=== PATIENT | male | born 1945 | race Caucasian/White ===

== ENCOUNTER 2024-02-04 15:12 | Emergency (ER) | payer OTHER, SELFPAY ==
[2024-02-04] VITALS (29 sets, daily range): BP systolic 108–138; BP diastolic 65–100; PULSE 48–56; RESP 13–23; TEMP 36.5; O2SAT 94–100; BMI 31.3
--- NOTE | 2024-02-04 16:07 | XR_ITS ---
The [address] [address] Patient Name: ANISHA ANGEL MRN: [id number] date: 1945 Sex: M Assigned Patient Location: ER Current Patient Location: ER Accession/Order Number: [id number] Exam Date: 02/04/2024 16:20 Report Date: 02/04/2024 17:04 At the request of: HILARY HOWELL Procedure: XR chest 1V Exam: Radiographs: XR chest 1V Reason for exam: weak Comparison: Chest x-ray dated 03/16/2021 XR/XR chest 1V IMPRESSION: Small amount of linear atelectasis or scarring in the left lower lung. Minimal right midlung scarring. Remainder of the chest is unremarkable. Electronically authenticated by: SONYA RATLIFF Date: 02/04/2024 17:04
--- NOTE | 2024-02-04 16:07 | ECG_ITS ---
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
--- NOTE | 2024-02-04 16:07 | CT_ITS ---
The [address] [address] Patient Name: ANISHA ANGEL MRN: [id number] date: 1945 Sex: M Assigned Patient Location: ER Current Patient Location: ER Accession/Order Number: [id number] Exam Date: 02/04/2024 16:20 Report Date: 02/04/2024 16:58 At the request of: HILARY HOWELL Procedure: CT head/brain wo con CT HEAD WITHOUT CONTRAST. INDICATION: Dizziness. COMPARISON: None available for comparison TECHNIQUE: Axial CT head images from the skull base to the vertex without IV contrast were acquired. Coronal and sagittal reformats were also obtained. FINDINGS: EXTRA-AXIAL SPACE: Age-appropriate ventricles. No acute extra-axial collection. No extra-axial mass. No midline shift. CEREBRUM: No focal abnormality. No CT evidence of acute large territorial cortical infarct, hemorrhage or mass effect. CEREBELLUM: No focal abnormality. No CT evidence of acute infarct, hemorrhage or mass effect. BRAINSTEM: No focal abnormality. No CT evidence of acute infarct, hemorrhage or mass effect. EXTRACRANIAL STRUCTURES. There is opacification of the left maxillary sinus. Mastoid air cells are clear. Orbits are unremarkable. No discrete pituitary mass. Intact calvarium. CT/CT head/brain wo con IMPRESSION: No acute intracranial abnormality. Electronically authenticated by: CORDELL CALDERON Date: 02/04/2024 16:58
--- NOTE | 2024-02-04 16:08 | ED_ITS ---
HPI - General Adult General Chief complaint: Neuro Symptoms/Deficit Stated complaint: Dizziness Time Seen by Provider: 02/04/24 15:52 Source: patient and family Mode of arrival: Wheelchair Limitations: no limitations History of Present Illness HPI narrative: 78-year-old male presents for 4-day history of feeling dizzy and off balance. He has not fallen but he states when he walks he feels like he might do so. He has not noticed any localized weakness and does not have a headache or fever. No cough or shortness of breath or chest pain or abdominal pain. He has never had the symptoms before and it is continuous. Related Data Home Medications ?Medication ?Instructions ?Recorded ?Confirmed acetazolamide 250 mg tablet 250 mg PO Q12H 02/04/24 02/04/24 brimonidine 0.2 % eye drops 1 drp ophthalmic (eye) Q8H 02/04/24 02/04/24 dorzolamide 22.3 mg-timolol 6.8 1 drp ophthalmic (eye) Q12H 02/04/24 02/04/24 mg/mL eye drops duloxetine 30 mg capsule,delayed 30 mg PO DAILY 02/04/24 02/04/24 release finasteride 5 mg tablet 5 mg PO DAILY 02/04/24 02/04/24 latanoprost 0.005 % eye drops 1 drp ophthalmic (eye) .qhs 02/04/24 02/04/24 losartan 50 mg tablet 50 mg PO DAILY 02/04/24 02/04/24 metoprolol succinate 25 mg 12.5 mg PO Q12H 02/04/24 02/04/24 tablet,extended release 24 hr spironolactone 25 mg tablet 25 mg PO DAILY 02/04/24 02/04/24 tamsulosin 0.4 mg capsule 0.4 mg PO Q24H 02/04/24 02/04/24 Allergies Allergy/AdvReac Type Severity Reaction Status Date / Time Penicillins Allergy Hives Verified 02/04/24 15:29 Review of Systems ROS Narrative A ten point review of systems is negative except as noted above. Exam Narrative Exam Narrative: Nurses note and vital signs reviewed and patient is not hypoxic. General: The patient appears in no apparent distress. Patient is resting comfortably on cart. Skin: Warm, dry, no pallor noted. There is no rash noted. Head: Normocephalic, atraumatic Eye: Normal conjunctiva, no drainage Ears, Nose, Mouth, and Throat: oral mucosa is moist. Nares patent. Right TM and external canal are normal. Minimal cerumen in the left external canal Cardiovascular: Regular Rate and Rhythm Respiratory: Patient is in no distress, no accessory muscle use, lungs are clear to auscultation, no wheezing, rales or rhonchi Back: non-tender GI: Soft and nontender Musculoskeletal: The patient has no evidence of calf tenderness, no pitting edema, symmetrical pulses noted bilaterally Neurological: A&O x4, normal speech; upper and lower extremity strength intact Psychiatric: Cooperative Constitutional Vital Signs, click to edit/add: Last Vital Signs Temp 97.7 F 02/04/24 15:34 Pulse 51 L 02/04/24 17:20 Resp 17 02/04/24 17:20 BP 115/73 02/04/24 17:01 Pulse Ox 100 02/04/24 17:20 O2 Del Method Room Air 02/04/24 15:34 Course Vital Signs Vital signs: Vital Signs Temperature 97.7 F 02/04/24 15:34 Pulse Rate 52 L 02/04/24 15:34 Respiratory Rate 14 02/04/24 15:34 Blood Pressure 120/65 02/04/24 15:34 Pulse Oximetry 98 02/04/24 15:34 Oxygen Delivery Method Room Air 02/04/24 15:34 Temperature 97.7 F 02/04/24 15:34 Pulse Rate 51 L 02/04/24 17:20 Respiratory Rate 17 02/04/24 17:20 Blood Pressure 115/73 02/04/24 17:01 Pulse Oximetry 100 02/04/24 17:20 Oxygen Delivery Method Room Air 02/04/24 15:34 Medical Decision Making MDM Narrative Medical decision making narrative: Workup here is negative including CAT scan of the brain. I do not clinically suspect a stroke. He has no focal deficits. He has had the symptoms for 4 days. He will be released home and will call his PCP in the morning for follow- up. Treatment diagnosis and follow-up were discussed with the patient and his family. Differential Diagnosis Differential Diagnosis: Stroke, dehydration, anemia, UTI Lab Data Lab results reviewed: Yes I reviewed the patient's lab results Labs: Lab Results 03/25/24 03/25/24 Range/Units 16:05 18:10 WBC 6.3 (4.0-11.0) 10^3/uL RBC 4.36 L (4.70-6.10) 10^6/uL Hgb 14.3 (14.0-18.0) g/dL Hct 42.0 (42.0-54.0) % MCV 96.3 H (80.0-94.0) fL MCH 32.8 (25.9-34.0) pg MCHC 34.0 (29.9-35.2) g/dL RDW 12.4 (11.0-15.0) % Plt Count 188 (150-450) 10^3/uL MPV 12.4 (9.5-13.5) fL Neut % (Auto) 56.2 (43.0-75.0) % Lymph % (Auto) 31.1 (20.5-60.0) % Dixie % (Auto) 9.3 (1.7-12.0) % Eos % (Auto) 1.9 (0.9-7.0) % Baso % (Auto) 1.3 (0.2-2.0) % Neut # (Auto) 3.5 (1.4-6.5) 10^3/uL Lymph # (Auto) 2.0 (1.2-3.8) 10^3/uL Dixie # (Auto) 0.6 (0.3-0.8) 10^3/uL Eos # (Auto) 0.1 (0.0-0.7) 10^3/uL Baso # (Auto) 0.1 (0.0-0.1) 10^3/uL Abs Immat Gran (auto) 0.01 (0.00-0.03) 10^3/uL Imm/Tot Granulo (auto) 0.2 (0.0-0.5) % Sodium 138 (136-145) mmol/L Potassium 4.1 (3.5-5.1) mmol/L Chloride 108 H (98-107) mmol/L Carbon Dioxide 21.9 (21.0-32.0) mmol/L Anion Gap 12.2 BUN 18.0 (7.0-18.0) mg/dL Creatinine 0.99 (0.70-1.30) mg/dL Est GFR ( Amer) >60 (>=60) Est GFR (Non-Af Amer) >60 (>=60) BUN/Creatinine Ratio 18.2 Glucose 91 (74-106) mg/dL Calcium 9.0 (8.5-10.1) mg/dL Troponin I High Sens 14.4 (4.0-76.1) pg/mL Urine Color Lt. yellow (YELLOW) Urine Clarity Clear (CLEAR) Urine pH 6.5 (5.0-9.0) Ur Specific [place] 1.015 (1.005-1.025) Urine Protein Negative (NEG/TRACE) mg/dL Urine Glucose (UA) Negative (NEGATIVE) mg/dL Urine Ketones Negative (NEGATIVE) mg/dL Urine Occult Blood Negative (NEGATIVE) Urine Nitrite Negative (NEGATIVE) Urine Bilirubin Negative (NEGATIVE) Urine Urobilinogen 0.2 (0.2-1.0) EU/dL Ur Leukocyte Esterase Negative (NEGATIVE) Urine RBC 0-2 (0-2) #/HPF Urine WBC None seen (NONE SEEN) #/HPF Ur Squamous Epith Cells None seen (NONE/RARE) #/LPF Urine Crystals None seen (None Seen) #/HPF Urine Bacteria None seen (NONE SEEN) #/HPF Urine Casts None seen (NONE SEEN) #/LPF Urine Mucus None seen (NONE SEEN) Discharge Plan Discharge Stand Alone Forms: Portal Instructions Chief Complaint: Neuro Symptoms/Deficit Clinical Impression: Dizziness Patient Disposition: Home, Self-Care Time of Disposition Decision: 18:51 Condition: Good Mode of Transportation: Private Vehicle Prescriptions / Home Meds: No Action brimonidine 0.2 % drops 1 drp OPHTHALMIC (EYE) Q8H dorzolamide-timolol 22.3-6.8 mg/mL drops 1 drp OPHTHALMIC (EYE) Q12H acetazolamide 250 mg tablet 250 mg PO Q12H Patient Comments: started on 01/31/24 duloxetine 30 mg capsule,delayed release(DR/EC) 30 mg PO DAILY latanoprost 0.005 % drops 1 drp OPHTHALMIC (EYE) .qhs tamsulosin 0.4 mg capsule 0.4 mg PO Q24H metoprolol succinate 25 mg tablet extended release 24 hr 12.5 mg PO Q12H spironolactone 25 mg tablet 25 mg PO DAILY losartan 50 mg tablet 50 mg PO DAILY finasteride 5 mg tablet 5 mg PO DAILY Print Language: Indonesian Instructions: Dizziness (ED) Additional Instructions: Call your PCP in the morning for follow-up appointment. Referrals: NATHANIEL DELGADO [Primary Care Provider] - 1 week
[2024-02-04 16:41] LABS: Basophils Absolute Auto 0.1 10^3/uL (0.0-0.1); Basophils Percent Auto 1.3 % (0.2-2.0); Eosinophils Absolute Auto 0.1 10^3/uL (0.0-0.7); Eosinophils Percent Auto 1.9 % (0.9-7.0); Hemoglobin 14.3 g/dL (14.0-18.0); Immature Granulocytes Abs Auto 0.01 10^3/uL (0.00-0.03); Immature Granulocytes Pct Auto 0.2 % (0.0-0.5); Lymphocytes Percent Auto 31.1 % (20.5-60.0); Mean Corpuscular Hemoglobin 32.8 pg (25.9-34.0); Mean Corpuscular Volume 96.3 fL (80.0-94.0); Mean Platelet Volume 12.4 fL (9.5-13.5); Monocytes Absolute Auto 0.6 10^3/uL (0.3-0.8); Monocytes Percent Auto 9.3 % (1.7-12.0); Neutrophils Absolute Auto 3.5 10^3/uL (1.4-6.5); Neutrophils Percent Auto 56.2 % (43.0-75.0); Platelet Count 188 10^3/uL (150-450); Red Blood Count 4.36 10^6/uL (4.70-6.10); Red Cell Distribution Width 12.4 % (11.0-15.0); White Blood Count 6.3 10^3/uL (4.0-11.0)
[2024-02-04 16:53] LABS: Anion Gap 12.2; BUN Creatinine Ratio 18.2; Carbon Dioxide 21.9 mmol/L (21.0-32.0); Chloride 108 mmol/L (98-107); Estimated GFR (African America >60 (>=60); Estimated GFR (Non-African Ame >60 (>=60); Glucose 91 mg/dL (74-106); Potassium 4.1 mmol/L (3.5-5.1); Sodium 138 mmol/L (136-145)
[2024-02-04 17:04] LABS: Troponin I High Sensitivity 14.4 pg/mL (4.0-76.1)
[2024-02-04 18:38] LABS: Bilirubin Urine NEGATIVE (NEGATIVE); Blood Urine NEGATIVE (NEGATIVE); Clarity Urine CLEAR (CLEAR); Color Urine LT. YELLOW (YELLOW); Glucose Urine UA NEGATIVE (NEGATIVE); Ketones Urine NEGATIVE (NEGATIVE); Leukocyte Esterase Urine NEGATIVE (NEGATIVE); Nitrite Urine NEGATIVE (NEGATIVE); Protein Urine NEGATIVE (NEG/TRACE); Specific Gravity Urine 1.015 (1.005-1.025); Urobilinogen Urine 0.2 EU/dL (0.2-1.0); pH Urine 6.5 (5.0-9.0)
[2024-02-04 18:51] LABS: Bacteria Urine NONE SEEN #/HPF (NONE SEEN); Cast Seen? NONE SEEN #/LPF (NONE SEEN); Crystals Seen? None Seen #/HPF (None Seen); Mucus Urine NONE SEEN (NONE SEEN); RBC Urine 0-2 #/HPF (0-2); Squamous Epithelial Cell Urine NONE SEEN #/LPF (NONE/RARE); WBC Urine NONE SEEN #/HPF (NONE SEEN)
== END 2024-02-04 19:21 | disposition home or self-care (01) ==
PROVIDERS: Emergency Provider Emergency Medicine; PCP Family Medicine
DX: R42 Dizziness and giddiness (principal); Z79.899 Other long term (current) drug therapy
CPT/HCPCS: 36415; 70450; 71045; 80048; 81001; 84484; 85025; 93005; 99285

== ENCOUNTER 2024-02-21 11:14 | Outpatient (OUT) | payer OTHER, SELFPAY ==
--- NOTE | 2024-02-21 12:00 | CA_ITS ---
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1945 Requested By: NATHANIEL DELGADO Order Number: [id number] Reading MD: JOHN COBB Interpretive Statements Predominant rhythm is sinus with average rate of 56 bpm Tachycardia - none Bradycardia - min rate of 40 bpm (72% burden) Ventricular ectopy - 92 PVC - 8 bigeminy Patient triggered events: 5 - associated with sinus bradycardia - not associated with dizziness, fatigue Impression: Predominant rhythm is sinus with average rate of 56 bpm Fastest rate of 92 bpm and slowest rate of 40 bpm 92 PVC No atrial fibrillation No pauses or blocks Electronically Signed On 03-02-2024 7:39:42 EDT by JOHN COBB
[2024-02-21 12:42] LABS: Thyroid Stimulating Hormone 2.077 uIU/mL (0.358-3.740)
[2024-02-21 12:43] LABS: Free T4 0.78 ng/dL (0.76-1.46)
== END 2024-02-21 11:15 | disposition home or self-care (01) ==
LOC: LAB 11:14
PROVIDERS: PCP Family Medicine; Visit Provider Family Medicine
DX: R42 Dizziness and giddiness (principal); R53.83 Other fatigue; R00.1 Bradycardia, unspecified; I11.9 Hypertensive heart disease without heart failure
CPT/HCPCS: 36415; 84439; 84443; 93242

== ENCOUNTER 2025-01-09 06:28 | Emergency (ER) | payer MEDICARE, SELFPAY ==
[2025-01-09 06:31] VITALS: BP 147/85; PULSE 94; TEMP 36.8; O2SAT 96; BMI 31.3
--- NOTE | 2025-01-09 06:47 | ECG_ITS ---
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
--- NOTE | 2025-01-09 06:50 | ED_ITS ---
Documented by User: Mervat Mercer MD 01/09/25 06:54 HPI - URI/Sore Throat General Chief Complaint: Upper Respiratory Infection Stated Complaint: SOB Time Seen by Provider: 01/09/25 06:38 Source: patient Limitations: no limitations History of Present Illness HPI Narrative: This 79-year-old male presents for evaluation of multiple complaints. The patient states that he cannot breathe out of his nose and has pressure in his face. He states that he has had the flu several times recently. He has not had a flu test but states he is fairly certain that he had the flu because had an upset stomach and bodyaches recently. That had resolved by Sunday and he was feeling better however last night he states he had to get up to use the bathroom every hour and by the end of the night he had a lot of nasal congestion. He woke up his son to bring him to the hospital. Denies any chest pain or shortness of breath with breathing through his mouth. He occasionally coughs. He occasionally has nasal drainage. He denies any sore throat or ear pain. Does not have a headache. He thinks he had a fever last night because his head felt hot and his earlobes were hot. He is not having any abdominal pain or back pain. He has no nausea or vomiting. He states he typically has to urinate every 3 hours throughout the night but last night he was up every hour which was unusual for him. He also states recently he has been off balance he has not fallen but has felt unsteady on his feet. His son brought him to the emergency department. Related Data Home Medications ?Medication ?Instructions ?Recorded ?Confirmed brimonidine 0.2 % eye drops 1 drp ophthalmic (eye) Q8H 02/04/24 01/09/25 dorzolamide 22.3 mg-timolol 6.8 1 drp ophthalmic (eye) Q12H 02/04/24 01/09/25 mg/mL eye drops duloxetine 30 mg capsule,delayed 30 mg PO DAILY 02/04/24 01/09/25 release finasteride 5 mg tablet 5 mg PO DAILY 02/04/24 01/09/25 latanoprost 0.005 % eye drops 1 drp ophthalmic (eye) .qhs 02/04/24 01/09/25 tamsulosin 0.4 mg capsule 0.4 mg PO Q24H 02/04/24 01/09/25 Allergies Allergy/AdvReac Type Severity Reaction Status Date / Time Penicillins Allergy Hives Verified 01/09/25 06:37 Review of Systems ROS Status of ROS 10 or more systems reviewed and unremark able except as noted in history and below PFSH PFSH Social History Little interest or pleasure in doing things: not at all Feeling down, depressed, or hopeless: not at all Exam Narrative Exam Narrative: Vital signs and Nursing Notes reviewed: Patient is afebrile with a normal pulse, blood pressure is elevated at 147/85, he is not hypoxic with pulse ox of 96% on room air General: Awake, alert, oriented, no acute distress, lying comfortably on the stretcher HEENT: Normocephalic atraumatic, mucous membranes are moist and pink, eyes are clear, normal conjunctiva, vision is grossly intact, posterior pharynx is normal in appearance. Tympanic membranes are normal bilaterally Neck: Supple, no JVD Chest: Lungs are clear to auscultation with good air entry, there is no wheezing rhonchi or rales appreciated no accessory muscle use, patient is speaking in complete sentences-no chest wall tenderness to palpation CVS: Regular rate and rhythm S1-S2, no murmurs rubs or gallops, pulses are brisk and equal bilaterally ABD: Soft, nondistended, nontender, no rebound guarding or rigidity, bowel sounds are normal, no pulsatile masses appreciated Extremities: Moving all extremities, no lower extremity tenderness or swelling noted, negative Homans' sign, pulses are brisk and equal bilaterally Skin: Normal in appearance without rash,pallor, petechiae or purpura Neuro: No focal deficits Constitutional Vital Signs, click to edit/add: Last Vital Signs Temp 98.3 F 01/09/25 06:31 Pulse 85 01/09/25 07:10 Resp 20 01/09/25 07:10 BP 125/71 01/09/25 07:10 Pulse Ox 96 01/09/25 07:10 O2 Del Method Room Air 01/09/25 07:10 Course Vital Signs Vital signs: Vital Signs Temperature 98.3 F 01/09/25 06:31 Pulse Rate 94 H 01/09/25 06:31 Respiratory Rate 18 01/09/25 06:31 Blood Pressure 147/85 H 02/28/25 06:31 Pulse Oximetry 96 01/09/25 06:31 Oxygen Delivery Method Room Air 01/09/25 06:31 Temperature 98.3 F 01/09/25 06:31 Pulse Rate 85 01/09/25 07:10 Respiratory Rate 20 01/09/25 07:10 Blood Pressure 125/71 01/09/25 07:10 Pulse Oximetry 96 01/09/25 07:10 Oxygen Delivery Method Room Air 01/09/25 07:10 MDM - URI/Sore Throat Lab Data Labs: Lab Results 01/09/25 01/09/25 01/09/25 Range/Units 06:55 07:05 07:35 WBC 3.7 L (4.0-11.0) 10^3/uL RBC 4.71 (4.70-6.10) 10^6/uL Hgb 14.9 (14.0-18.0) g/dL Hct 43.9 (42.0-54.0) % MCV 93.2 (80.0-94.0) fL MCH 31.6 (25.9-34.0) pg MCHC 33.9 (29.9-35.2) g/dL RDW 13.1 (11.0-15.0) % Plt Count 157 (150-450) 10^3/uL MPV 12.2 (9.5-13.5) fL Seg Neuts % (Manual) 70.0 (43.0-75.0) Lymphocytes % (Manual) 18.0 L (20.5-60.0) % Monocytes % (Manual) 11.0 (1.7-12.0) % Eosinophils % (Manual) 1.0 (0.9-7.0) % Basophils % (Manual) 0.0 L (0.2-2.0) % Neutrophils # (Manual) 2.59 (1.4-6.5) 10^3/uL Lymphocytes # (Manual) 0.66 L (1.20-3.80) 10^3/uL Monocytes # (Manual) 0.40 (0.30-0.80) 10^3/uL Eosinophils # (Manual) 0.03 (0.00-0.70) 10^3/uL Basophils # (Manual) 0.00 (0.00-0.10) 10^3/uL Sodium 136 (136-145) mmol/L Potassium 3.9 (3.5-5.1) mmol/L Chloride 103 (98-107) mmol/L Carbon Dioxide 23.6 (21.0-32.0) mmol/L Anion Gap 13.3 BUN 11.0 (7.0-18.0) mg/dL Creatinine 1.15 (0.70-1.30) mg/dL Est GFR ( Amer) >60 (>=60 mL/min/1.73m^2) Est GFR (Non-Af Amer) >60 (>=60 mL/min/1.73m^2) BUN/Creatinine Ratio 9.6 Glucose 138 H (74-106) mg/dL Calcium 9.3 (8.5-10.1) mg/dL Total Bilirubin 0.6 (0.2-1.0) mg/dL AST 23 (15-37) U/L ALT 47 (16-63) U/L Alkaline Phosphatase 69 (46-116) U/L Troponin I High Sens 21.9 (4.0-76.1) pg/mL Total Protein 6.7 (6.4-8.2) g/dL Albumin 3.4 (3.4-5.0) g/dL Globulin 3.3 g/dL Albumin/Globulin Ratio 1.0 Urine Color Yellow (YELLOW) Urine Clarity Cloudy A (CLEAR) Urine pH 7.0 (5.0-9.0) Ur Specific [place] 1.020 (1.005-1.025) Urine Protein Trace (NEG/TRACE) mg/dL Urine Glucose (UA) Negative (NEGATIVE) mg/dL Urine Ketones Negative (NEGATIVE) mg/dL Urine Occult Blood Trace-i (NEGATIVE) Urine Nitrite Negative (NEGATIVE) Urine Bilirubin Negative (NEGATIVE) Urine Urobilinogen 0.2 (0.2-1.0) EU/dL Ur Leukocyte Esterase Negative (NEGATIVE) Urine RBC 0-2 (0-2) #/HPF Urine WBC 0-2 A (NONE SEEN) #/HPF Ur Squamous Epith Cells Rare (NONE/RARE) #/LPF Urine Crystals Seen A (None Seen) #/HPF Amorphous Sediment Many Urine Bacteria Moderate A (NONE SEEN) #/HPF Urine Casts None seen (NONE SEEN) #/LPF Urine Mucus None seen (NONE SEEN) Ur [place] Indicated[place] [place] Type A Ag Negative Influenza Type B Ag Negative SARS-CoV-2 Ag (CV2AG) Positive A (NEGATIVE) ECG Data Attestation: I personally reviewed and interpreted this ECG as follows: (Sinus rhythm 87 bpm with occasional PVCs, nonspecific ST changes with mild ST depression in leads II, V4, V5, V6, left axis deviation, no acute ST segment elevation) Discharge Plan Discharge Chief Complaint: Upper Respiratory Infection Clinical Impression: Upper respiratory infection, Dizziness, COVID Patient Disposition: Home, Self-Care Time of Disposition Decision: 08:13 Condition: Fair Prescriptions / Home Meds: No Action brimonidine 0.2 % drops 1 drp OPHTHALMIC (EYE) Q8H dorzolamide-timolol 22.3-6.8 mg/mL drops 1 drp OPHTHALMIC (EYE) Q12H duloxetine 30 mg capsule,delayed release(DR/EC) 30 mg PO DAILY latanoprost 0.005 % drops 1 drp OPHTHALMIC (EYE) .qhs tamsulosin 0.4 mg capsule 0.4 mg PO Q24H finasteride 5 mg tablet 5 mg PO DAILY Print Language: [place]ut[place] Instructions: Influenza (ED), Upper Respiratory Infection (ED), Dizziness (ED), COVID-19 (Coronavirus Disease 2019) (ED) Additional Instructions: Increase fluids at home, Gatorade, Powerade, or water. Alternate using DayQuil, NyQuil, and Flonase. Add Mucinex as well as needed. Alternate Tylenol and Motrin every 4 hours to help with fever control, body aches or joint pain. Use [id number] vitamin C, vitamin D3, and zinc to help fight infection and help with her immune system. Referrals: NATHANIEL DELGADO [Primary Care Provider] - 1 week Discharge Date/Time: 01/09/25 08:23 Documented by User: Jacob Greer MD 01/09/25 08:28 HPI - URI/Sore Throat General Chief Complaint: Upper Respiratory Infection Stated Complaint: SOB Time Seen by Provider: 01/09/25 06:38 Related Data Home Medications ?Medication ?Instructions ?Recorded ?Confirmed brimonidine 0.2 % eye drops 1 drp ophthalmic (eye) Q8H 02/04/24 01/09/25 dorzolamide 22.3 mg-timolol 6.8 1 drp ophthalmic (eye) Q12H 02/04/24 01/09/25 mg/mL eye drops duloxetine 30 mg capsule,delayed 30 mg PO DAILY 02/04/24 01/09/25 release finasteride 5 mg tablet 5 mg PO DAILY 02/04/24 01/09/25 latanoprost 0.005 % eye drops 1 drp ophthalmic (eye) .qhs 02/04/24 01/09/25 tamsulosin 0.4 mg capsule 0.4 mg PO Q24H 02/04/24 01/09/25 Allergies Allergy/AdvReac Type Severity Reaction Status Date / Time Penicillins Allergy Hives Verified 01/09/25 06:37 PFSH PFSH Social History Little interest or pleasure in doing things: not at all Feeling down, depressed, or hopeless: not at all Exam Constitutional Vital Signs, click to edit/add: Last Vital Signs Temp 98.3 F 01/09/25 06:31 Pulse 85 01/09/25 07:10 Resp 20 01/09/25 07:10 BP 125/71 01/09/25 07:10 Pulse Ox 96 01/09/25 07:10 O2 Del Method Room Air 01/09/25 07:10 Course Vital Signs Vital signs: Vital Signs Temperature 98.3 F 01/09/25 06:31 Pulse Rate 94 H 01/09/25 06:31 Respiratory Rate 18 01/09/25 06:31 Blood Pressure 147/85 H 01/09/25 06:31 Pulse Oximetry 96 01/09/25 06:31 Oxygen Delivery Method Room Air 01/09/25 06:31 Temperature 98.3 F 01/09/25 06:31 Pulse Rate 85 01/09/25 07:10 Respiratory Rate 20 01/09/25 07:10 Blood Pressure 125/71 01/09/25 07:10 Pulse Oximetry 96 01/09/25 07:10 Oxygen Delivery Method Room Air 01/09/25 07:10 MDM - URI/Sore Throat MDM Narrative Medical decision making narrative: Patient's urine shows no acute abnormalities. COVID was positive. Lab test showed no acute abnormalities. EKG was reviewed by Dr. Mercer, no acute abnormalities. Education was done with patient and son at bedside. If patient continues to have increased urine, he will follow-up with Dr. Last Soto for further testing. Education on prostate was done at bedside. Patient does feel better after Tylenol and Afrin. Patient will follow-up with PCP. No question at discharge. Patient looks well Lab Data Labs: Lab Results 01/09/25 01/09/25 01/09/25 Range/Units 06:55 07:05 07:35 WBC 3.7 L (4.0-11.0) 10^3/uL RBC 4.71 (4.70-6.10) 10^6/uL Hgb 14.9 (14.0-18.0) g/dL Hct 43.9 (42.0-54.0) % MCV 93.2 (80.0-94.0) fL MCH 31.6 (25.9-34.0) pg MCHC 33.9 (29.9-35.2) g/dL RDW 13.1 (11.0-15.0) % Plt Count 157 (150-450) 10^3/uL MPV 12.2 (9.5-13.5) fL Seg Neuts % (Manual) 70.0 (43.0-75.0) Lymphocytes % (Manual) 18.0 L (20.5-60.0) % Monocytes % (Manual) 11.0 (1.7-12.0) % Eosinophils % (Manual) 1.0 (0.9-7.0) % Basophils % (Manual) 0.0 L (0.2-2.0) % Neutrophils # (Manual) 2.59 (1.4-6.5) 10^3/uL Lymphocytes # (Manual) 0.66 L (1.20-3.80) 10^3/uL Monocytes # (Manual) 0.40 (0.30-0.80) 10^3/uL Eosinophils # (Manual) 0.03 (0.00-0.70) 10^3/uL Basophils # (Manual) 0.00 (0.00-0.10) 10^3/uL Sodium 136 (136-145) mmol/L Potassium 3.9 (3.5-5.1) mmol/L Chloride 103 (98-107) mmol/L Carbon Dioxide 23.6 (21.0-32.0) mmol/L Anion Gap 13.3 BUN 11.0 (7.0-18.0) mg/dL Creatinine 1.15 (0.70-1.30) mg/dL Est GFR ( Amer) >60 (>=60 mL/min/1.73m^2) Est GFR (Non-Af Amer) >60 (>=60 mL/min/1.73m^2) BUN/Creatinine Ratio 9.6 Glucose 138 H (74-106) mg/dL Calcium 9.3 (8.5-10.1) mg/dL Total Bilirubin 0.6 (0.2-1.0) mg/dL AST 23 (15-37) U/L ALT 47 (16-63) U/L Alkaline Phosphatase 69 (46-116) U/L Troponin I High Sens 21.9 (4.0-76.1) pg/mL Total Protein 6.7 (6.4-8.2) g/dL Albumin 3.4 (3.4-5.0) g/dL Globulin 3.3 g/dL Albumin/Globulin Ratio 1.0 Urine Color Yellow (YELLOW) Urine Clarity Cloudy A (CLEAR) Urine pH 7.0 (5.0-9.0) Ur Specific [place] 1.020 (1.005-1.025) Urine Protein Trace (NEG/TRACE) mg/dL Urine Glucose (UA) Negative (NEGATIVE) mg/dL Urine Ketones Negative (NEGATIVE) mg/dL Urine Occult Blood Trace-i (NEGATIVE) Urine Nitrite Negative (NEGATIVE) Urine Bilirubin Negative (NEGATIVE) Urine Urobilinogen 0.2 (0.2-1.0) EU/dL Ur Leukocyte Esterase Negative (NEGATIVE) Urine RBC 0-2 (0-2) #/HPF Urine WBC 0-2 A (NONE SEEN) #/HPF Ur Squamous Epith Cells Rare (NONE/RARE) #/LPF Urine Crystals Seen A (None Seen) #/HPF Amorphous Sediment Many Urine Bacteria Moderate A (NONE SEEN) #/HPF Urine Casts None seen (NONE SEEN) #/LPF Urine Mucus None seen (NONE SEEN) Ur Culture Indicated? [place] [place] Influenza Type A Ag Negative Influenza Type B Ag Negative SARS-CoV-2 Ag (CV2AG) Positive A (NEGATIVE) Discharge Plan Discharge Chief Complaint: Upper Respiratory Infection Clinical Impression: Upper respiratory infection, Dizziness, COVID Patient Disposition: Home, Self-Care Time of Disposition Decision: 08:13 Condition: Fair Prescriptions / Home Meds: No Action brimonidine 0.2 % drops 1 drp OPHTHALMIC (EYE) Q8H dorzolamide-timolol 22.3-6.8 mg/mL drops 1 drp OPHTHALMIC (EYE) Q12H duloxetine 30 mg capsule,delayed release(DR/EC) 30 mg PO DAILY latanoprost 0.005 % drops 1 drp OPHTHALMIC (EYE) .qhs tamsulosin 0.4 mg capsule 0.4 mg PO Q24H finasteride 5 mg tablet 5 mg PO DAILY Print Language: [place]ut[place] Instructions: Influenza (ED), Upper Respiratory Infection (ED), Dizziness (ED), COVID-19 (Coronavirus Disease 2019) (ED) Additional Instructions: Increase fluids at home, Gatorade, Powerade, or water. Alternate using DayQuil, NyQuil, and Flonase. Add Mucinex as well as needed. Alternate Tylenol and Motrin every 4 hours to help with fever control, body aches or joint pain. Use [id number] vitamin C, vitamin D3, and zinc to help fight infection and help with her immune system. Referrals: NATHANIEL DELGADO [Primary Care Provider] - 1 week Discharge Date/Time: 01/09/25 08:23
[2025-01-09 07:03] LABS: Hematocrit 43.9 % (42.0-54.0); Hemoglobin 14.9 g/dL (14.0-18.0); Mean Corpuscular HGB Conc 33.9 g/dL (29.9-35.2); Mean Corpuscular Hemoglobin 31.6 pg (25.9-34.0); Mean Corpuscular Volume 93.2 fL (80.0-94.0); Mean Platelet Volume 12.2 fL (9.5-13.5); Platelet Count 157 10^3/uL (150-450); Red Blood Count 4.71 10^6/uL (4.70-6.10); Red Cell Distribution Width 13.1 % (11.0-15.0); White Blood Count 3.7 10^3/uL (4.0-11.0)
[2025-01-09] MEDS: OXYMETAZOLINE HCL 0.05% NASAL SPRAY 2 SPRAY NS (07:04)
[2025-01-09] MEDS: ACETAMINOPHEN 325 MG TABLET 650 MG PO (07:04)
[2025-01-09 07:10] VITALS: BP 125/71; PULSE 85; O2SAT 96
[2025-01-09 07:25] LABS: Alanine Aminotransferase 47 U/L (16-63); Albumin Level 3.4 g/dL (3.4-5.0); Alkaline Phosphatase 69 U/L (46-116); Anion Gap 13.3; Aspartate Amino Transferase 23 U/L (15-37); BUN Creatinine Ratio 9.6; Bilirubin Total 0.6 mg/dL (0.2-1.0); Calcium 9.3 mg/dL (8.5-10.1); Carbon Dioxide 23.6 mmol/L (21.0-32.0); Chloride 103 mmol/L (98-107); Estimated GFR (African America >60 (>=60 mL/min/1.73m^2); Estimated GFR (Non-African Ame >60 (>=60 mL/min/1.73m^2); Globulin 3.3 g/dL; Glucose 138 mg/dL (74-106); Potassium 3.9 mmol/L (3.5-5.1); Sodium 136 mmol/L (136-145); Total Protein 6.7 g/dL (6.4-8.2); Troponin I High Sensitivity 21.9 pg/mL (4.0-76.1)
[2025-01-09 07:39] LABS: Influenza Virus A Antigen Negative; Influenza Virus B Antigen Negative; Internal Control Within Normal Limits; SARS-CoV-2 Ag POSITIVE (NEGATIVE)
[2025-01-09 07:39] LABS: Eosinophils Absolute Manual 0.03 10^3/uL (0.00-0.70); Lymphocytes Absolute Manual 0.66 10^3/uL (1.20-3.80); Segmented Neut Absolute Manual 2.59 10^3/uL (1.4-6.5)
[2025-01-09 07:50] LABS: Bilirubin Urine NEGATIVE (NEGATIVE); Blood Urine TRACE-I (NEGATIVE); Clarity Urine CLOUDY (CLEAR); Color Urine YELLOW (YELLOW); Glucose Urine UA NEGATIVE (NEGATIVE); Ketones Urine NEGATIVE (NEGATIVE); Leukocyte Esterase Urine NEGATIVE (NEGATIVE); Nitrite Urine NEGATIVE (NEGATIVE); Protein Urine TRACE mg/dL (NEG/TRACE); Urobilinogen Urine 0.2 EU/dL (0.2-1.0)
[2025-01-09 08:01] LABS: Bacteria Urine MODERATE #/HPF (NONE SEEN); Mucus Urine NONE SEEN (NONE SEEN); RBC Urine 0-2 #/HPF (0-2); Squamous Epithelial Cell Urine RARE #/LPF (NONE/RARE); WBC Urine 0-2 #/HPF (NONE SEEN)
[2025-01-09 08:06] LABS: Amorphous Sediment Urine MANY; Cast Seen? NONE SEEN #/LPF (NONE SEEN); Crystals Seen? Seen #/HPF (None Seen); Urine Culture Indicated YES-FRMC
== END 2025-01-09 08:23 | disposition home or self-care (01) ==
PROVIDERS: Emergency Provider Emergency Medicine; PCP Family Medicine
DX: U07.1 COVID-19 (principal); R42 Dizziness and giddiness; J06.9 Acute upper respiratory infection, unspecified; R06.02 Shortness of breath; R82.998 Other abnormal findings in urine
CPT/HCPCS: 36415; 80053; 81001; 84484; 85007; 85027; 87086; 87804; 87811; 93005; 99284